=== PATIENT | female | born 1955 | race Caucasian/White ===

== ENCOUNTER 2023-12-29 20:47 | Emergency (ER) | payer OTHER, SELFPAY ==
[2023-12-29 20:52] VITALS: BP 163/126; PULSE 85; RESP 18; TEMP 36.6; O2SAT 97
[2023-12-29] MEDS: Lidocaine/Epinephri/Tetracaine Topical Gel 3 ML (22:09)
--- NOTE | 2023-12-29 22:19 | ED.GENADUL_ITS ---
Discharge Plan Disposition Patient Disposition: Home Condition: Good Discharge Details Chief Complaint: Laceration Clinical Impression: Laceration of brow without complication, Laceration of lip Primary Care Provider: Cecile,Local ED Provider: Jaya Srivastava Home Meds and New Rx's Prescriptions: No Action aspirin 81 mg capsule 81 mg PO DAILY lisinopril-hydrochlorothiazide 10-12.5 mg tablet 1 tab PO DAILY atorvastatin [Lipitor] 20 mg tablet 20 mg PO DAILY omeprazole 20 mg capsule,delayed release(DR/EC) 20 mg PO DAILY magnesium 200 mg tablet 200 mg PO DAILY cetirizine [24Hour Allergy] 10 mg tablet 10 mg PO DAILY PRN Discharge Instructions Instructions: Care For Your Stitches (ED), Facial Laceration (ED) Additional Instructions: Please keep the area clean and dry. Monitor closely for any redness, drainage or discharge. If they have not you can gently rub warm soapy water on the area to help them come off. For nonabsorbable sutures, please return in 7 to 10 days to have the wound reassessed and the sutures removed. If you come back to the emergency department here it will be free of charge for the suture removal. For long-term scar cosmesis, please make sure to avoid any sun to the area for the next year. Apply moisturizer or vitamin E to the area twice daily for the next 12 months for the best chance of wound/scar medication. Please take a daily multivitamin as well as this can help in wound healing. If you notice any worsening of your symptoms, or any new symptoms such as vomiting, diarrhea, fever, chills, shortness of breath, chest pain, numbness, weakness, or fainting , please return immediately to the emergency department for reevaluation. Please follow up with your primary care provider as soon as possible for reassessment and reevaluation. As always, it was a pleasure participating in your medical care today. HPI General Date/Time Provider Initiated Documentation: 12/29/23 20:56 . HPI Narrative: 68-year-old female with a past medical history of reflux, who takes a daily aspirin presents today for evaluation of laceration and fall. Patient states that today she had been out hiking, was dehydrated, drank a very large martini and was at home going down to get the laundry started when she tripped on the steps and hit her right brow. She did not have any loss of consciousness. She recalls the entire event. She denies any numbness or tingling or vision changes. This occurred about an hour prior to arrival. She came to the ER for further assessment. Patient reports last tetanus shot was 3 to 4 years ago. Patient denies any other complaints at this time. No headache, neck pain, chest pain. No other trauma. Related Data Home Medications Medication Instructions Recorded Confirmed aspirin 81 mg capsule 81 mg PO DAILY 12/29/23 12/29/23 atorvastatin 20 mg tablet (Lipitor) 20 mg PO DAILY 12/29/23 12/29/23 cetirizine 10 mg tablet (24Hour 10 mg PO DAILY PRN 12/29/23 12/29/23 Allergy) lisinopril 10 1 tab PO DAILY 12/29/23 12/29/23 mg-hydrochlorothiazide 12.5 mg tablet magnesium 200 mg tablet 200 mg PO DAILY 12/29/23 12/29/23 omeprazole 20 mg capsule,delayed 20 mg PO DAILY 12/29/23 12/29/23 release Allergies Allergy/AdvReac Type Severity Reaction Status Date / Time No Known Allergies Allergy Unverified 12/29/23 20:56 General Stated Complaint: Laceration AIMEE: 3 Review of Systems All systems reviewed & are unremarkable except as noted in HPI and below Exam Narrative Exam Narrative: 1.Const: Well-nourished, Well-developed, appearing stated age 2.Eyes: PERRL, no conjunctival injection, and symmetrical lids. 3.ENT: Patient demonstrates a linear vertical 4 cm laceration over the right brow. Small superficial abrasion over the right upper lip. Atraumatic external nose and ears. Moist MM. Neck: Symmetric, trachea midline, No thyromegaly. There is no evidence of raccoon eyes, renner sign, CSF rhinorrhea, mastoid tenderness, cranial crepitus, hemotympanum, exophthalmos, or hyphema. Patient demonstrates intact dentition with no signs of tooth avulsion or fracture, no signs of jaw deformity, no evidence of a LeFort's fracture, with an intact palate, nose and orbital region. There is no evidence of a nasal septal hematoma. No proptosis. Jaw closes symmetrically. Airway is clear. 4.CVS: +S1/S2, No murmurs or gallops. Peripheral pulses 2+ and equal in all extremities. Brisk capillary refill in all extremities. 5.RESP: Unlabored respiratory effort. Clear to auscultation bilaterally. No wheezes rales or rhonchi 6.GI: Soft, Nontender/Nondistended, No hepatosplenomegaly. No guarding or rebound. 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 Sensation grossly intact, no focal neurologic deficits. All 6 cardinal planes of vision are fully intact. No evidence of rotatory or vertical nystagmus. The patient demonstrated a normal bbwkal-[id number]-xcawwi, good dexterity. There was no evidence of dysdiadochokinesia. Patient was able to ambulate without difficulty. There was no wide-based gait. Romberg testing was normal. Gisr-df-ozvl testing was normal. Sensation was intact bilaterally as well as muscle strength bilaterally for all extremities. Patient was able to verbalize butter cup with no slurring, or miss pronunciation. 10.Psych: (AAO) x3. Appropriate mood and affect Course Vital Signs Vital signs: Vital Signs Temperature 36.6 C 12/29/23 20:52 Pulse 85 12/29/23 20:52 Respiratory Rate 18 12/29/23 20:52 Blood Pressure 163/126 H 12/29/23 20:52 Pulse Oximetry 97 12/29/23 20:52 Temperature 36.6 C 12/29/23 20:52 Temperature Source Skin 12/29/23 20:52 Pulse 85 12/29/23 20:52 Respiratory Rate 18 12/29/23 20:52 Respiratory Effort Normal 12/29/23 20:55 Blood Pressure 163/126 H 12/29/23 20:52 Blood Pressure Position Sitting 12/29/23 20:52 Pulse Oximetry 97 12/29/23 20:52 Oxygen Delivery Method Room Air 12/29/23 20:52 Oxygen Flow Rate 0 12/29/23 20:52 Pain Level 0 12/29/23 21:45 Procedures Laceration Laceration 1: Site: face Side (If applicable): right Size (cm): 4 Description: linear Depth: simple, single layer Local Anesthetic: Lidocaine 1% Amount of anesthesia used (mL): 5 Pre-repair: wound explored, irrigated extensively and deep structures intact Skin layer closed with: nylon Size (cm): 6-0 Number of sutures: 7 Technique: simple, interrupted Subcutaneous layer closed with: other (Monocryl) Size: 5-0 Number of sutures: 2 Technique: simple, interrupted Laceration 2: Site: lip Side (If applicable): right Size (cm): 1 Description: linear Depth: simple, single layer Local Anesthetic: Lidocaine 1% Amount of anesthesia used (mL): 2 Pre-repair: wound explored, irrigated extensively and deep structures intact Skin layer closed with: other (Monocryl) Size (cm): 5-0 Number of sutures: 2 Technique: simple, interrupted Medical Decision Making 68-year-old female with a past medical history of reflux, who takes a daily aspirin presents today for evaluation of laceration and fall. Patient states that today she had been out hiking, was dehydrated, drank a very large martini and was at home going down to get the laundry started when she tripped on the steps and hit her right brow. She did not have any loss of consciousness. She recalls the entire event. She denies any numbness or tingling or vision changes. This occurred about an hour prior to arrival. She came to the ER for further assessment. Patient reports last tetanus shot was 3 to 4 years ago. Patient denies any other complaints at this time. No headache, neck pain, chest pain. No other trauma. Exam demonstrates well-appearing female, mildly intoxicated, large 4 cm vertical laceration over the right brow, transecting the eyebrow itself. No bony ten derness. No other signs of trauma. No midline cervical thoracic or lumbar spine tenderness. No loose teeth. Slight abrasion over the right upper lip. No other abnormalities on exam otherwise. Will get a CT scan of the patient's head neck and face secondary to the mechanism. No indication for c-collar secondary to an absence of midline tenderness. Will apply let, monitor closely and reassess. 11 PM Patient and asked to discuss the CT scan. Patient felt that it was unnecessary. I spent a long time discussion with the patient the risks and benefits of CT imaging, my reasons for ordering the CT imaging and my concerns including subdural, subarachnoid, epidural, or fracture. Patient understands this. 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 He understands this. Patient is asked to hold off on CT imaging. has agreed with her and would like to hold off on the imaging. I did discuss imaging options for the patient and at this time through notable discussion, weighing the risks and benefits, and a shared decision making process the patient and her has refused imaging at this time. Patient is of an appropriate age to make decisions. Respecting the patient's wishes we will hold off on imaging. That being said there are no focal neurologic deficits otherwise, the patient appears stable. Patient's face was sutured, to subcutaneous sutures were placed without complication, 7 superficial sutures were then placed for good wound edge reapproximation. 2 simple interrupted sutures were placed on the upper lip as well. Patient tolerated this well. Discussed red flags for which to return. I have extensively reviewed the treatment plan and discharge instructions with the patient and their family. I have addressed all patient concerns at this time. The patient and family was made aware of what symptoms to monitor for that would warrant a return to the emergency department. Discussed the plan with the patient and family, they demonstrate verbal understanding and agreement with our assessment and plan at this time. The documentation in this chart was dictated using [employer] dictation software. Please excuse any dictation errors. Patient ambulated well out of the emergency department with no ataxia. No stumbling motion. She conversed clearly. Quality:SDOH Health Related Social Needs: No Data to Display PFSH All Active Problems (Updated 12/29/23 @ 23:15 by Jaya Srivastava DO) Laceration of lip (Acute) Laceration of brow without complication (Acute) Social History Smoking/Tobacco Use Status: Never Smoking risk assessment performed?: Yes Alcohol Intake: current Alcohol Intake frequency: a few times a month Substance use type: does not use Do you feel safe at home: No Do you feel safe in your relationship?: No
[2023-12-29] MEDS: Lidocaine 1% Multi-Dose W/EPI 1/100,000 50 ML VIAL (22:38)
== END 2023-12-29 23:19 | disposition home or self-care (01) ==
PROVIDERS: Emergency Provider Student in an Organized Health Care Education/Training Program
DX: S01.111A Laceration without foreign body of right eyelid and periocular area, initial encounter (principal); S01.511A Laceration without foreign body of lip, initial encounter; K21.9 Gastro-esophageal reflux disease without esophagitis; Z79.82 Long term (current) use of aspirin; W10.8XXA Fall (on) (from) other stairs and steps, initial encounter; Y93.01 Activity, walking, marching and hiking; Y92.018 Other place in single-family (private) house as the place of occurrence of the external cause
CPT/HCPCS: 12013; 99283; J2004

== ENCOUNTER 2023-12-30 05:26 | Emergency (ER) | payer OTHER, SELFPAY ==
[2023-12-30 05:28] VITALS: BP 149/70; PULSE 84; RESP 16; TEMP 37.2; O2SAT 100
--- NOTE | 2023-12-30 05:30 | DI.CT_ITS ---
Exam(s) CT HEAD CERV SPINE FACIAL WO EXAM: CT HEAD CERV SPINE FACIAL WO CLINICAL HISTORY: fell, etoh, hit right face, r/o fx/bleed. TECHNIQUE: Imaging Protocol: Axial computed tomography images with coronal and sagittal reformatted images were created and reviewed COMPARISON: No exams were available for comparison FINDINGS: CT Head: Ventricles and Extra axial spaces: Normal in size and morphology for the patient's age. Hemorrhage: None. Cerebral parenchyma: Normal. Midline shift: None. Brainstem/Cerebellum: Normal. Calvarium: Normal. Visualized Paranasal sinuses/Mastoids: Clear. Soft Tissues: There is soft tissue swelling overlying the right forehead. CT Face: Facial Bones: No definite fracture is noted in facial bones. Sinuses and Mastoids: Unremarkable. Globes, extraocular muscles, optic nerves and retrobulbar fat: Normal. Upper aerodigestive tract: Normal. Mandible and bilateral temporomandibular joints: Normal. Soft tissues: There is soft tissue swelling overlying the right forehead. CT Cervical Spine: Bones: No acute fracture or subluxation. Soft Tissues: Unremarkable. Lung Apices: Clear. IMPRESSION: 1. No acute intracranial process. 2. No acute fracture or subluxation in the cervical spine. 3. No acute facial fracture. RADIATION DOSE DELIVERED: 1,933.94mGy.cm Total DLP DATA REPOSITORY: All CT scans at this facility are submitted to the National Radiology Data Registry (NRDR) Dose Index Registry (DIR) with the [employer] (ACR). RADIATION OPTIMIZATION: All CT scans at this facility use at least one of these dose optimization te chniques: automated exposure control; mA and/or kV adjustment per patient size (includes targeted exa ms where dose is matched to clinical indication); or iterative reconstruction.
--- NOTE | 2023-12-30 05:32 | W.ED.GENAD ---
Discharge Plan Disposition Patient Disposition: Home Condition: Good Discharge Details Chief Complaint: Nausea/Vomit/Diar Clinical Impression: Concussion, Nausea & vomiting Primary Care Provider: Cecile,Local ED Provider: Jaya Srivastava Home Meds and New Rx's Prescriptions: No Action aspirin 81 mg capsule 81 mg PO DAILY lisinopril-hydrochlorothiazide 10-12.5 mg tablet 1 tab PO DAILY atorvastatin [Lipitor] 20 mg tablet 20 mg PO DAILY omeprazole 20 mg capsule,delayed release(DR/EC) 20 mg PO DAILY magnesium 200 mg tablet 200 mg PO DAILY cetirizine [24Hour Allergy] 10 mg tablet 10 mg PO DAILY PRN Discharge Instructions Instructions: Concussion (ED) Additional Instructions: At this time the CAT scan of your head shows no evidence of bleed or other abnormalities. You have been rehydrated. Your symptoms appear consistent with a concussion. If you have any worsening of your symptoms please return immediately. Please be very cognizant of any evidence of worsening headache, vomiting, weakness, numbness, dizziness, decreased concentration, memory problems, sleep disturbance, irritability, fatigue, visual disturbances, judgment problems, depression, or anxiety. These may represent a worsening of your condition or a different, or worse pathology. Please either return immediately for reevaluation or follow up with your primary care provider immediately for continued assessment, reassessment, and management. Please avoid any contact sports, or activities which could cause jarring of your head. A second repeat injury can cause significant and permanent brain damage. After you have complete resolution of any of the symptoms noted above please wait one COMPLETE week until you resume normal gentle physical activity. If you have any return of the symptoms after this, please again wait 1 week after you have complete resolution of your symptoms to return to gentle and normal activities. If you notice any worsening of your symptoms, or any new symptoms such as vomiting, diarrhea, fever, chills, shortness of breath, chest pain, numbness, weakness, or fainting , please return immediately to the emergency department for reevaluation. Please follow up with your primary care provider as soon as possible for reassessment and reevaluation. As always, it was a pleasure participating in your medical care today. HPI General Date/Time Provider Initiated Documentation: 12/30/23 05:28. HPI Narrative: The this is a pleasant 68-year-old female who presents today for evaluation of headache nausea and vomiting. Patient was seen earlier this evening, she had had 1 martini, went down the stairs to start the wash, then fell and hit her face. At the time she was evaluated she was noted to have a laceration over her right forehead and upper lip. She was seen by myself, I recommended CT imaging but she declined. Because of her intoxication I did discuss the case with her who is at bedside. He agreed with his to hold off on CT imaging at that time. Risks and benefits were discussed and they accepted these risks understood. Patient was sutured and discharged home. I gave clear instructions that if she had any worsening of her symptoms she would immediately return. This evening she had worsening headache and a few episodes of vomiting. She came back for further assessment. She denies any other acute changes. No numbness or tingling, no vision changes, no new falls. She denies any abdominal pain. No other complaints at this time. Related Data Home Medications Medication Instructions Recorded Confirmed aspirin 81 mg capsule 81 mg PO DAILY 12/29/23 12/30/23 atorvastatin 20 mg tablet (Lipitor) 20 mg PO DAILY 12/29/23 12/30/23 cetirizine 10 mg tablet (24Hour 10 mg PO DAILY PRN 12/29/23 12/30/23 Allergy) lisinopril 10 1 tab PO DAILY 12/29/23 12/30/23 mg-hydrochlorothiazide 12.5 mg tablet magnesium 200 mg tablet 200 mg PO DAILY 12/29/23 12/30/23 omeprazole 20 mg capsule,delayed 20 mg PO DAILY 12/29/23 12/30/23 release Allergies Allergy/AdvReac Type Severity Reaction Status Date / Time No Known Allergies Allergy Unverified 12/30/23 05:31 General Stated Complaint: Nausea/Vomit/Diar AIMEE: 3 Review of Systems All systems reviewed & are unremarkable except as noted in HPI and below Exam Narrative Exam Narrative: 1.Const: Well-nourished, Well-developed, appearing stated age 2.Eyes: PERRL, no conjunctival injection, and symmetrical lids. 3.ENT: Patient demonstrates a well-approximated/sutured laceration right brow. There is no evidence of raccoon eyes, renner sign, CSF rhinorrhea, mastoid tenderness, cranial crepitus, hemotympanum, exophthalmos, or hyphema. Patient demonstrates intact dentition with no signs of tooth avulsion or fracture, no signs of jaw deformity, no evidence of a LeFort's fracture, with an intact palate, nose and orbital region. There is no evidence of a nasal septal hematoma. No proptosis. Jaw closes symmetrically. Airway is clear. 4.CVS: +S1/S2, No murmurs or gallops. Peripheral pulses 2+ and equal in all extremities. Brisk capillary refill in all extremities. 5.RESP: Unlabored respiratory effort. Clear to auscultation bilaterally. No wheezes rales or rhonchi 6.GI: Soft, Nontender/Nondistended, No hepatosplenomegaly. No guarding or rebound. 7.MSK: Normocephalic/Atraumatic, Extremities w/o deformity or ttp No cyanosis or clubbing, Normal movement of all extremities. No midline cervical thoracic or lumbar spine tenderness 8.Skin: Warm, Dry. No rashes or lesions. 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 Sensation grossly intact, no focal neurologic deficits. All 6 cardinal planes of vision are fully intact. No evidence of rotatory or vertical nystagmus. The patient demonstrated a normal hsfnjp-nhjp-syqycm, good dexterity. There was no evidence of dysdiadochokinesia. Patient was able to ambulate without difficulty. There was no wide-based gait. Romberg testing was normal. Bkdz-mp-xeng testing was normal. Sensation was intact bilaterally as well as muscle strength bilaterally for all extremities. Patient was able to verbalize butter cup with no slurring, or miss pronunciation. 10.Psych: (AAO) x3. Appropriate mood and affect Course Vital Signs Vital signs: Vital Signs Temperature 37.2 C 12/30/23 05:28 Pulse 84 12/30/23 05:28 Respiratory Rate 16 12/30/23 05:28 Pulse Oximetry 100 12/30/23 05:28 Temperature 37.2 C 12/30/23 05:28 Temperature Source Oral 12/30/23 05:28 Pulse 84 12/30/23 05:28 Respiratory Rate 16 12/30/23 05:28 Pulse Oximetry 100 12/30/23 05:28 Oxygen Delivery Method Room Air 12/30/23 05:28 Oxygen Flow Rate 0 12/30/23 05:28 Pain Level 0 12/30/23 05:28 Medical Decision Making The this is a pleasant 68-year-old female who presents today for evaluation of headache nausea and vomiting. Patient was seen earlier this evening, she had had 1 martini, went down the stairs to start the wash, then fell and hit her face. At the time she was evaluated she was noted to have a laceration over her right forehead and upper lip. She was seen by myself, I recommended CT imaging but she declined. Because of her intoxication I did discuss the case with her who is at bedside. He agreed with his to hold off on CT imaging at that time. Risks and benefits were discussed and they accepted these risks understood. Patient was sutured and discharged home. I gave clear instructions that if she had any worsening of her symptoms she would immediately return. This evening she had worsening headache and a few episodes of vomiting. She came back for further assessment. She denies any other acute changes. No numbness or tingling, no vision changes, no new falls. She denies any abdominal pain. No other complaints at this time. Exam at this time is identical to previous assessment, aside for her sutured lacerations. She shows no focal neurologic deficits, no cervical spine tenderness. Mucous membranes are dry. No abdominal tenderness. Differential is highest for concussion, less likely subdural or epidural hematoma or intraparenchymal hemorrhage. Will get a CT scan, rehydrate, give Zofran, monitor closely and reassess. 7:[address] scan has returned and per radiology no evidence of acute process. Laboratory workup demonstrates no white count, electrolytes stable, renal function stable. Lipase normal. Alcohol only 22. After liter fluid and Zofran patient feels much better. She feels well and would like to go home. No evidence of intracranial bleed, subdural epidural or other abnormality otherwise. Suspect concussion as the cause of her symptoms in conjunction with not having eaten anything the day before, and being intoxicated as well. Discussed appropriate concussion discharge instructions, will give a small bottle of Zofran for home use. Patient is going home with her back to [place] today. Patient stable for discharge. No evidence of stroke. Discussed red flags for which to return. I have extensively reviewed the treatment plan and discharge instructions with the patient and their family. I have addressed all patient concerns at this time. The patient and family was made aware of what symptoms to monitor for that would warrant a return to the emergency department. Discussed the plan with the patient and family, they demonstrate verbal understanding and agreement with our assessment and plan at this time. The documentation in this chart was dictated using [employer] dictation software. Please excuse any dictation errors. FINDINGS: Brain: Normal. No hemorrhage or edema. Cerebral ventricles: No ventriculomegaly. Paranasal sinuses: Visualized sinuses are unremarkable. No fluid levels. Mastoid air cells: Unremarkable. Bones: Unremarkable. No acute fracture. Soft tissues: Unremarkable. IMPRESSION: No acute intracranial abnormality. FINDINGS: Orbital cavities: Orbits are normal. Globes are unremarkable. Bones: No acute fracture. Paranasal sinuses: Normal. No air-fluid levels. Soft tissues: Unremarkable. IMPRESSION: No acute findings. FINDINGS: Bones: No acute fracture. Normal alignment. No significant disc bulge or herniation. No severe spinal canal stenosis. No significant neural foraminal narrowing. Lungs: Lung apices are normal. Soft tissues: Unremarkable. IMPRESSION: No acute findings. Thank you for allowing us to participate in the care of your patient. Dictated and Authenticated by: Casa Hinojosa MD Quality:SDOH Health Related Social Needs: No Data to Display PFSH All Active Problems (Updated 12/30/23 @ 07:11 by Jaya Srivastava DO) Nausea & vomiting (Acute) Concussion (Acute) Laceration of lip (Acute) Laceration of brow without complication (Acute) Social History Smoking/Tobacco Use Status: Never Smoking risk assessment performed?: Yes Alcohol Intake: current Alcohol Intake frequency: a few times a month Substance use type: does not use Do you feel safe at home: No Do you feel safe in your relationship?: No
[2023-12-30] MEDS: Ondansetron 4 MG/2 ML VIAL IVP (05:37)
[2023-12-30] MEDS: Lactated Ringers 1,000 ML 1000 ML IV (05:37)
[2023-12-30 05:42] LABS: Abs Immature Grans 0.04 10^3/uL (0.0-0.06); Absolute Basophil Count 0.03 10^3/uL (0.0-0.2); Absolute Eosinophil Count 0.08 10^3/uL (0.0-0.7); Absolute Lymphocyte Count 0.36 10^3/uL (1.2-3.4); Absolute Monocyte Count 0.27 10^3/uL (0.1-0.8); Absolute Neutrophil Count 8.97 10^3/uL (1.2-6.7); Basophils % 0.3 %; Eosinophils % 0.8 %; HCT 43.4 % (36.0-46.0); HGB 15.2 g/dL (11.2-15.7); Immature Grans % 0.4 %; Lymphocytes % 3.7 %; MCH 30.8 pg (27.0-33.0); MCV 88 fL (80-95); MPV 9.4 fL (8.0-11.0); Monocytes % 2.8 %; Platelet Count 254 10^3/uL (130-400); RBC 4.93 10^6/uL (3.93-5.22); RDW-SD 38.5 fL; WBC 9.75 10^3/uL (4.4-10.8)
[2023-12-30 05:58] LABS: ALT 42 U/L (14-59); AST 32 U/L (15-37); Albumin 4.3 g/dL (3.4-5.0); Alkaline Phosphatase 72 U/L (46-116); Anion Gap 17.8 mmol/L (3-11); BUN 27 mg/dL (7-18); Bilirubin, Total 0.9 mg/dL (0.2-1.0); CO2 22.2 mmol/L (21.0-32.0); CREATININE 0.8 mg/dL (0.55-1.02); Calcium 9.5 mg/dL (8.5-10.1); Chloride 104 mmol/L (98-107); ETHANOL BLOOD 22.3 mg/dL (<10); Estimated GFR 80.71 (mL/min/1.73m2); Glucose 123 mg/dL (74-106); Lipase 47 U/L (16-77); Potassium 3.6 mmol/L (3.5-5.1); Sodium 144 mmol/L (136-145); Total Protein 7.8 g/dL (6.4-8.2)
--- NOTE | 2023-12-30 06:19 | DI.VRAD_ITS ---
PROCEDURE INFORMATION: Exam: CT Head Without Contrast Exam date and time: 12/30/2023 5:50 AM Age: 68 years old Clinical indication: Injury or trauma; Fall; Blunt trauma (contusions or hematomas); Forehead and other: Hit right face; Injury details: Fell, ETOH, hit right face, R/O fx/bleed TECHNIQUE: Imaging protocol: Computed tomography of the head without contrast. COMPARISON: No relevant prior studies available. FINDINGS: Brain: Normal. No hemorrhage or edema. Cerebral ventricles: No ventriculomegaly. Paranasal sinuses: Visualized sinuses are unremarkable. No fluid levels. Mastoid air cells: Unremarkable. Bones: Unremarkable. No acute fracture. Soft tissues: Unremarkable. IMPRESSION: No acute intracranial abnormality. PROCEDURE INFORMATION: Exam: CT Maxillofacial Without Contrast Exam date and time: 12/30/2023 5:50 AM Age: 68 years old Clinical indication: Injury or trauma; Fall; Blunt trauma (contusions or hematomas); Forehead and other: Hit right face; Injury details: Fell, ETOH, hit right face, R/O fx/bleed TECHNIQUE: Imaging protocol: Computed tomography of the face without contrast. COMPARISON: No relevant prior studies available. FINDINGS: Orbital cavities: Orbits are normal. Globes are unremarkable. Bones: No acute fracture. Paranasal sinuses: Normal. No air-fluid levels. Soft tissues: Unremarkable. IMPRESSION: No acute findings. PROCEDURE INFORMATION: Exam: CT Cervical Spine Without Contrast Exam date and time: 12/30/2023 5:50 AM Age: 68 years old Clinical indication: Injury or trauma; Fall; Blunt trauma (contusions or hematomas); Forehead and other: Hit right face; Injury details: Fell, ETOH, hit right face, R/O fx/bleed TECHNIQUE: Imaging protocol: Computed tomography of the cervical spine without contrast. COMPARISON: No relevant prior studies available. FINDINGS: Bones: No acute fracture. Normal alignment. No significant disc bulge or herniation. No severe spinal canal stenosis. No significant neural foraminal narrowing. Lungs: Lung apices are normal. Soft tissues: Unremarkable. IMPRESSION: No acute findings. Dictated and Authenticated by: Casa Hinojosa MD. Ordering:JACKIE Lake MD
[2023-12-30] MEDS: Ondansetron O.D.T. 4 MG TABEF, 3 TABS/BTL PO (07:14)
== END 2023-12-30 07:19 | disposition home or self-care (01) ==
PROVIDERS: Emergency Provider Student in an Organized Health Care Education/Training Program
DX: S06.0XAA Concussion with loss of consciousness status unknown, initial encounter (principal); R11.2 Nausea with vomiting, unspecified; W19.XXXA Unspecified fall, initial encounter; Z91.81 History of falling
CPT/HCPCS: 80053; 83690; 96361; 96374; 99284; 70450; 70486; 72125; 80320; 85025; 99283; J2405